=== PATIENT | male | born 1940 | race Caucasian/White ===

== ENCOUNTER 2023-04-02 10:16 | Day surgery (SDC) | payer MEDICARE, SELFPAY ==
[2023-03-28 07:40] VITALS: BMI 25.0
--- NOTE | 2023-04-02 10:41 | PM.PREOP ---
Pre-operative Note COVID-19 COVID-19 status: Not tested Interval Note History & Physical reviewed/Exam performed by Physician: Yes Changes to H&P: No ASA Class (for procedural sedation): III
[2023-04-02 10:42] VITALS: BP 140/72; PULSE 67; RESP 18; TEMP 36.2; O2SAT 99; BMI 25.0
--- NOTE | 2023-04-02 10:48 | SUR.OPER ---
Supine on padded OR bed, head on pillow, arms secured on padded arm boards at <90 degrees abduction, legs uncrossed, safety belt at thigh, tape over blanket over lower legs.
[2023-04-02] MEDS: LACTATED RINGERS 1,000 ML 84 ML IV (10:52)
[2023-04-02] MEDS: CEFAZOLIN 2 GM/100 ML PREMIX 100 ML IV (11:07)
[2023-04-02] MEDS: BUPIVACAINE 0.5% (PF) 10 ML VIAL INJ (11:21)
[2023-04-02] MEDS: EPINEPHrine 1 MG/ML 0.15 MG INJ (11:22)
--- NOTE | 2023-04-02 12:04 | PM.OP.1 ---
Operative Date/Time/Diagnoses Date of procedure: 04/02/23 Time of procedure: 12:04 Pre-op diagnosis: Right inguinal hernia Post-op diagnosis: same Procedure & Clinicians Procedure: Open right inguinal hernia repair with mesh Same procedure as scheduled: Yes Surgeon: Harman Orozco [employer] Worker: Santiago Lira Operative Notes Procedure in detail: Preoperative antibiotic was administered. The patient was brought to the operating room and placed on the table in supine position general anesthesia was induced. The right groin was prepped and draped in the normal fashion and a time-out was performed. Roughly 10 mL of local anesthetic were injected into the skin and subcutaneous adipose tissue over the right groin. A 6 cm incision was made over the right inguinal canal. Dissection was carried down through the subcutaneous adipose tissue. We exposed the external oblique aponeurosis in the direction of the fibers. Additional local was injected deep to the aponeurosis. A 15 blade scalpel was used to anna the external oblique aponeurosis. Metzenbaum scissors were used to carefully open the aponeurosis in the direction of the fibers taking care not to injure the underlying ilioinguinal nerve which was well seen and protected. We completely exposed the inguinal canal. The cord was dissected free from the inguinal ligament and floor of the inguinal canal and the external oblique aponeurosis was dissected off of the internal oblique taking care not to injure the hypogastric nerve. We encircled the cord with a Shun drain for retraction. The primary defect was a direct defect containing fatty tissue. There was also a small indirect defect. We dissected the hernia sac off the cord structures and allowed it to reduce back into the abdomen. We then placed a polypropylene mesh against the floor of the inguinal canal. The mesh was secured with multiple interrupted 3-0 Prolene sutures to the pubic tubercle and shelving edge of the inguinal ligament as well as to the conjoint tendon medially. We overlapped the tails to recreate an internal ring and secured the medial tail to the inguinal ligament with additional sutures. We injected some more local into the fatty tissue in the inguinal canal and cord. Finally, we removed the Shun drain and closed the external oblique fascia with a running 3-0 Vicryl suture. Skin was closed with interrupted 3-0 Vicryl dermal sutures and a running 4 Monocryl subcuticular stitch. EBL 5 mL The patient was awakened and brought to recovery room. Santiago BENOIT provided assistance with exposure, retraction and closure of incisions. Post-operative Condition: stable Disposition: PACU
[2023-04-02 12:20] VITALS: BP 105/69; PULSE 74; RESP 14; TEMP 36.3; O2SAT 98
[2023-04-02 12:25] VITALS: BP 97/55; PULSE 71; RESP 12; TEMP 36.3; O2SAT 96
[2023-04-02 12:30] VITALS: BP 108/64; PULSE 74; RESP 14; TEMP 36.3; O2SAT 98
[2023-04-02 12:35] VITALS: BP 114/66; PULSE 73; RESP 13; TEMP 36.2; O2SAT 97
[2023-04-02 12:39] VITALS: BP 118/70; PULSE 71; RESP 14; TEMP 36.2; O2SAT 98
== END 2023-04-02 13:09 | disposition home or self-care (01) ==
PROVIDERS: PCP Internal Medicine; Referring Provider Surgery; Visit Provider Surgery
PROC: (CPT 49505; principal; 2023-04-02 11:45)
DX: K40.90 Unilateral inguinal hernia, without obstruction or gangrene, not specified as recurrent (principal); I10 Essential (primary) hypertension; E78.5 Hyperlipidemia, unspecified
CPT/HCPCS: 49505; J0171; J0690; J1170; J2405; J3010